=== PATIENT | female | born 1945 | race Caucasian/White ===

== ENCOUNTER → 2017-01-18 | Outpatient (CLI) | payer MEDICARE | END | disposition home or self-care (01) | LOC: CFH 13:04 | PROVIDERS: ATTEND Internal Medicine | DX: Z12.31 Encounter for screening mammogram for malignant neoplasm of breast (principal); R92.1 Mammographic calcification found on diagnostic imaging of breast | CPT/HCPCS: 77063; G0202 ==

== ENCOUNTER → 2017-11-01 | Outpatient (CLI) | payer MEDICARE | END | disposition home or self-care (01) | LOC: CFH 12:38 | PROVIDERS: ATTEND Internal Medicine | DX: Z13.820 Encounter for screening for osteoporosis (principal); E04.2 Nontoxic multinodular goiter; Z78.0 Asymptomatic menopausal state | CPT/HCPCS: 76536; 77080 ==

== ENCOUNTER → 2017-11-29 | Outpatient (CLI) | payer MEDICARE | END | disposition home or self-care (01) | LOC: CFH 08:38 | PROVIDERS: ATTEND Internal Medicine Geriatric Medicine | DX: D18.03 Hemangioma of intra-abdominal structures (principal); R16.0 Hepatomegaly, not elsewhere classified | CPT/HCPCS: 76700 ==

== ENCOUNTER → 2018-10-04 | Outpatient (CLI) | payer MEDICARE | END | disposition home or self-care (01) | LOC: CFH 13:01 | DX: R92.8 Other abnormal and inconclusive findings on diagnostic imaging of breast (principal) | CPT/HCPCS: 77065 ==

== ENCOUNTER 2018-10-06 11:51 | Outpatient (CLI) | payer MEDICARE ==
[2018-10-06] MEDS ORDERED: SODIUM BICARBONATE 4.0%, 5ML ONE (12:30)
[2018-10-06] MEDS ORDERED: LIDOCAINE 1%, 20ML ONE (12:30)
[2018-10-06] MEDS ORDERED: LIDOCAINE 1%-EPI 1:100K, 20ML ONE (12:30)
== END 2018-10-06 23:59 | disposition home or self-care (01) ==
LOC: CFH 11:51
DX: C50.911 Malignant neoplasm of unspecified site of right female breast (principal)
CPT/HCPCS: 19083; 77065; 88305; 88360; 88361; 88377; J3490; 19285

== ENCOUNTER → 2018-11-01 | Outpatient (CLI) | payer MEDICARE ==
[~2018-11-01] MED LIST: ACETAMINOPHEN 650 MG/20.3 ML UDC ONE; CALCIUM PO; CHOL10003 PO; CREA100P6 PO; LEVO50TA5 PO; MAGNESIUM PO; OXYcodone 5 MG/5 ML ORAL.SOL UDC ONE; TURM500C4 PO
== END | disposition home or self-care (01) ==
LOC: STAR 14:33
PROVIDERS: ATTEND Surgery
DX: Z01.818 Encounter for other preprocedural examination (principal); I45.10 Unspecified right bundle-branch block
CPT/HCPCS: 93005

== ENCOUNTER 2018-11-06 07:03 | Day surgery (SDC) | payer MEDICARE ==
[~2018-11-06] VITALS: Ht 167.6 cm; Wt 44.0 kg
[~2018-11-06 07:03] MED LIST changes: -ACETAMINOPHEN 650 MG/20.3 ML UDC ONE; +BUPIVACAINE/PF-EPI 0.5% 1:200K ONE; +ISOSULFAN BLUE 10 MG/ML, 5ML IV ONE; -OXYcodone 5 MG/5 ML ORAL.SOL UDC ONE
[2018-11-06] MEDS ORDERED: LACTATED RINGERS 1,000 ML IV SCH (07:57)
[2018-11-06 08:12] VITALS: BP 120/80
[2018-11-06] MEDS ORDERED: FENTANYL PF 100 MCG/2ML ONE (08:16)
[2018-11-06] MEDS ORDERED: MIDAZOLAM 1 MG/ML, 2ML ONE (08:16)
[2018-11-06] MEDS ORDERED: PROPOFOL 10 MG/ML, 20ML ONE (08:40)
[2018-11-06] MEDS ORDERED: DEXAMETHASONE 4 MG/ML, 1ML ONE ×2 (08:41→08:42)
[2018-11-06] MEDS ORDERED: ONDANSETRON 2MG/ML, 2ML ONE ×2 (08:42)
[2018-11-06] MEDS ORDERED: CEFAZOLIN 1,000 MG ONE (08:42)
[2018-11-06] MEDS ORDERED: ONDANSETRON 2MG/ML, 2ML IV PRN (09:00)
[2018-11-06] MEDS ORDERED: FENTANYL PF 100 MCG/2ML IV PRN (09:00)
[2018-11-06] MEDS ORDERED: MORPHINE SULFATE 4 MG/ML, 1ML IVPush PRN (09:00)
[2018-11-06] MEDS ORDERED: OXYcodone 5 MG/5 ML ORAL.SOL UDC PO PRN (09:00)
[2018-11-06] MEDS ORDERED: ONDANSETRON ODT 8 MG PO PRN (09:00)
[2018-11-06] MEDS ORDERED: MIDAZOLAM 1 MG/ML, 2ML IV PRN (09:00)
[2018-11-06] MEDS ORDERED: hydrALAzine 20 MG/ML, 1ML IV PRN (09:00)
[2018-11-06] MEDS ORDERED: DIAZEPAM 5 MG/ML, 2ML IVPush PRN (09:00)
[2018-11-06] MEDS ORDERED: PROMETHAZINE 12.5 MG SUPP PR PRN (09:00)
[2018-11-06] MEDS ORDERED: HYDROmorphone 2 MG/ML, 1ML IVPush PRN (09:00)
[2018-11-06] MEDS ORDERED: LABETALOL 5MG/ML, 20ML IV PRN (09:00)
[2018-11-06] MEDS ORDERED: HALOPERIDOL 5 MG/ML IV PRN (09:00)
[2018-11-06] MEDS ORDERED: MEPERIDINE/PF 25MG/0.5ML IVPush PRN (09:00)
[2018-11-06] MEDS ORDERED: ALBUTEROL SULFATE 2.5 MG/3 ML NPPB PRN (09:00)
[2018-11-06] MEDS ORDERED: EPHEDRINE 50 MG/ML, 1ML IVPush PRN (09:00)
[2018-11-06] MEDS ORDERED: PROMETHAZINE 25 MG/ML, 1ML IV PRN (09:00)
== END 2018-11-06 12:05 | disposition home or self-care (01) ==
LOC: OUT 07:03 → EDSTATUS 09:00 → OUT 12:05
PROVIDERS: ATTEND Surgery
DX: C50.911 Malignant neoplasm of unspecified site of right female breast (principal); R59.1 Generalized enlarged lymph nodes; Z98.890 Other specified postprocedural states; Z72.89 Other problems related to lifestyle
CPT/HCPCS: 19301; 38525; 38792; 88305; 88307; A9541; J0690; J1100; J2250; J2405; J2704; J3010; J7120

== ENCOUNTER 2018-11-30 07:24 | Outpatient (CLI) | payer MEDICARE ==
[~2018-11-30 07:24] MED LIST changes: -BUPIVACAINE/PF-EPI 0.5% 1:200K ONE; -ISOSULFAN BLUE 10 MG/ML, 5ML IV ONE
== END 2018-11-30 23:59 | disposition home or self-care (01) ==
LOC: ROC 07:24
PROVIDERS: ATTEND Radiology Radiation Oncology
DX: Z01.818 Encounter for other preprocedural examination (principal); C50.411 Malignant neoplasm of upper-outer quadrant of right female breast; E03.9 Hypothyroidism, unspecified; Z90.721 Acquired absence of ovaries, unilateral
CPT/HCPCS: G0463

== ENCOUNTER 2018-12-27 13:54 | Emergency (ER) | payer MEDICARE ==
[~2018-12-27] VITALS: Ht 167.6 cm; Wt 45.9 kg
--- NOTE | 2018-12-27 15:20 | NUR ---
PT POST BREAST CA SURG ADN ON CHEMO TX NO STOOL IN THE PAST TWO WEEKS FEELS DISTENDED
[2018-12-27] MEDS ORDERED: MORPHINE SULFATE 4 MG/ML, 1ML ONE (15:48)
[2018-12-27] MEDS ORDERED: ONDANSETRON 2MG/ML, 2ML ONE (15:48)
[2018-12-27] MEDS ORDERED: MORPHINE SULFATE 4 MG/ML, 1ML IVPush PRN (16:00)
[2018-12-27] MEDS ORDERED: ONDANSETRON 2MG/ML, 2ML IVPush ONE (16:00)
[2018-12-27 16:02] LABS: MEAN CORPUSCULAR HEMOGLOBIN 31.4 pg (27.0-34.8); MEAN CORPUSCULAR HGB CONC 33.1 g/dL (32.4-35.8); MEAN CORPUSCULAR VOLUME 94.8 fL (80-100); MEAN PLATELET VOLUME 9.3 fL (7.4-10.4); PLATELET COUNT 151 x10^3/uL (130-400); RED BLOOD COUNT 5.22 x10^6/uL (3.82-5.3); RED CELL DISTRIBUTION WIDTH 12.7 % (9.6-15.2)
[2018-12-27 16:11] LABS: ALANINE AMINOTRANSFERASE 45 U/L (12-78); ALBUMIN 4.2 g/dL (3.4-5.0); ANION GAP 9 mmol/L (5-15); CHLORIDE 101 mmol/L (98-107); CREATININE 0.88 mg/dL (0.55-1.02)
[2018-12-27 16:13] LABS: ALKALINE PHOSPHATASE 106 U/L (45-117); BILIRUBIN,TOTAL 0.8 mg/dL (0.2-1.0); TOTAL PROTEIN 7.4 g/dL (6.4-8.2)
[2018-12-27 16:19] LABS: MD YES
[2018-12-27 16:24] LABS: BAND#(MANUAL) 3.35 x10^3/uL; BANDS%(MANUAL) 25 % (0-7); LYMPH#(MANUAL) 2.55 x10^3/uL (1-3.4); LYMPHS% (MANUAL) 19 % (22-44); METAMYELOCYTES# (MANUAL) 0.27 x10^3/uL (0-0); METAMYELOCYTES% (MANUAL) 2 % (0-1); MONOS#(MANUAL) 1.74 x10^3/uL (0.3-2.7); MONOS% (MANUAL) 13 % (2-9); SEG#(MANUAL) 5.36 x10^3/uL (1.8-6.8); SEGS% (MANUAL) 40 % (42-75)
[2018-12-27 16:25] LABS: OTHER CELLS # (MANUAL) 0.13 x10^3/uL (0-0); OTHER CELLS % (MANUAL) 1 % (0-0)
[2018-12-27 16:26] LABS: <PLATELET ESTIMATE> ADEQUATE; ANISOCYTOSIS 1+; PMNS WITH VACUOLES 1+; TOXIC GRAN 1+
[2018-12-27 16:30] LABS: <PLT MORPHOLOGY> NORMAL PLT MORPH
--- NOTE | 2018-12-27 16:33 | NUR ---
ICE CHIPS GIVEN ERP AWARE
--- NOTE | 2018-12-27 17:00 | NUR ---
BEDSIDE REPORT AND CARE FROM BROOKLYN DAVIS. PT RESTING IN POSITION OF COMFORT. RATES PAIN 0/10. DENIES NEED TO USE RESTROOM, AWARE UA SAMPLE IS NEEDED. AWAITING RECHECK. SPOUSE AT BEDSIDE. VSS.
[2018-12-27] MEDS ORDERED: OMNIPAQUE 350 MG/ML, 100ML BOTTLE ONE (17:01)
[2018-12-27] MEDS ORDERED: POLYETHYLENE GLYCOL 17 GM PACKET NG ONE (17:30)
[2018-12-27] MEDS ORDERED: PINK LADY ENEMA 490 ML BOTTLE PR ONE (17:30)
--- NOTE | 2018-12-27 17:50 | NUR ---
PT AMBULATED TO RESTROOM WITH STEADY GAIT. CLEAN CATCH UA COLLECTED AND SENT TO LAB. PT RESTING IN POSITION OF COMFORT. DENIES ANY PAIN "PAIN IS ALL GONE." SPOUSE AT BEDSIDE. CALL LIGHT IN REACH.
--- NOTE | 2018-12-27 17:51 | NUR ---
[facility] ENEMA REQUESTED FROM PHARMACY
--- NOTE | 2018-12-27 17:57 | NUR ---
BEDSIDE REPORT AND CARE TO MANNY DAVSI AT THIS TIME.
[2018-12-27 18:17] LABS: MICROSCOPIC NOT IND
[2018-12-27 18:30] LABS: CULTURE INDICATED? NO
--- NOTE | 2018-12-27 20:00 | NUR ---
AFTER MEDICATION PATIENT WITH LARGE BM-REPORTS RELIEF PROVIDER MADE AWARE PROVIDED WITH CRACKER/JUICE/WATER
--- NOTE | 2018-12-27 21:00 | NUR ---
WITH ROAD TEST PATIENT REPORTING "I FEEL FAINT WHEN I GET UP" VITALS WNL 70, 130/65 PROVIDER MADE AWARE TO PROVIDER FURTHER NOURISHMENT AND RE-ASSESS
--- NOTE | 2018-12-27 22:15 | NUR ---
WITH MORE NOURISHMENT-PATIENT WALKING W/OUT DIFFICULTY (NO LONGER FAINT) DISCHARGED IN THE COMPANY OF HER ADVISED TO MAINTAIN HYDRATION/WATCH NARCOTIC ADMINISTRATION WHILE NOT EATING/DRINKING AT HER NORMAL
[2018-12-27 22:30] VITALS: BP 129/74
== END 2018-12-27 22:33 | disposition home or self-care (01) ==
LOC: ED 17:13
DX: M54.5 Low back pain (principal); K59.00 Constipation, unspecified; E03.9 Hypothyroidism, unspecified; Z90.710 Acquired absence of both cervix and uterus; Z90.89 Acquired absence of other organs; Z85.3 Personal history of malignant neoplasm of breast
CPT/HCPCS: 36415; 74177; 80053; 81003; 83690; 85025; 93005; 96374; 96375; 99284; J2270; J2405; Q9967

== ENCOUNTER 2019-01-17 20:47 | Emergency (ER) | payer MEDICARE ==
[~2019-01-17] VITALS: Ht 167.6 cm; Wt 46.2 kg
--- NOTE | 2019-01-17 21:18 | NUR ---
PT PRESENTING TO ER FOR CONSTIPATION, NO BM X7 DAYS. PT CURRENTLY ON CHEMO TREATMENTS, STATES THIS IS A SIDE EFFECT AND HASNT HAD A BM SINCE LAST TREATMENT. REVERSE ISO PRECAUTIONS IN PLACE. CONNECTED TO MONITORING, VSS. AT BEDSIDE. MD ASSESSMENT COMPLETE, AWAITING ORDERS AT THIS TIME. CALL LIGHT WITHIN REACH.
--- NOTE | 2019-01-17 21:29 | NUR ---
RAD AT BEDSIDE
--- NOTE | 2019-01-17 21:33 | NUR ---
REQUESTED URINE SAMPLE FROM PT, PT REPORTING JUST WENT AND CANNOT CURRENTLY PROVIDE. WILL CONTINUE TO CHECK BACK
--- NOTE | 2019-01-17 21:45 | NUR ---
LABS COLLECTED, TECH AT BEDSIDE FOR EKG
[2019-01-17 22:02] LABS: MEAN CORPUSCULAR HEMOGLOBIN 30.8 pg (27.0-34.8); MEAN CORPUSCULAR HGB CONC 32.5 g/dL (32.4-35.8); MEAN CORPUSCULAR VOLUME 94.8 fL (80-100); MEAN PLATELET VOLUME 8.1 fL (7.4-10.4); PLATELET COUNT 152 x10^3/uL (130-400); RED BLOOD COUNT 3.79 x10^6/uL (3.82-5.3); RED CELL DISTRIBUTION WIDTH 13.5 % (9.6-15.2)
[2019-01-17 22:13] LABS: ALANINE AMINOTRANSFERASE 34 U/L (12-78); ALBUMIN 3.2 g/dL (3.4-5.0); ANION GAP 6 mmol/L (5-15); CALCIUM 8.8 mg/dL (8.5-10.1); CHLORIDE 105 mmol/L (98-107); CREATININE 0.59 mg/dL (0.55-1.02)
--- NOTE | 2019-01-17 22:13 | NUR ---
PT UP TO RESTROOM AT THIS TIME TO ATTEMPT URINE SAMPLE
[2019-01-17 22:15] LABS: ALKALINE PHOSPHATASE 82 U/L (45-117); BILIRUBIN,TOTAL 0.6 mg/dL (0.2-1.0); TOTAL PROTEIN 5.8 g/dL (6.4-8.2)
[2019-01-17 22:22] LABS: MD YES
--- NOTE | 2019-01-17 22:23 | NUR ---
TO BEDSIDE TO UPDATE PT AND ON POC. UA COLLECTED AND SENT TO LAB. REPORT GIVEN TO MANNY DAVIS
[2019-01-17 22:29] LABS: MICROSCOPIC NOT IND
[2019-01-17] MEDS ORDERED: PINK LADY ENEMA 490 ML BOTTLE PR ONE (22:30)
[2019-01-17 22:36] LABS: CULTURE INDICATED? NO
[2019-01-17 22:37] LABS: BAND#(MANUAL) 0.79 x10^3/uL; BANDS%(MANUAL) 7 % (0-7); EOS#(MANUAL) 0.11 x10^3/uL (0.0-0.4); EOS% (MANUAL) 1 % (1-7); LYMPH#(MANUAL) 1.92 x10^3/uL (1-3.4); LYMPHS% (MANUAL) 17 % (22-44); METAMYELOCYTES% (MANUAL) 8 % (0-1); MONOS% (MANUAL) 8 % (2-9); MYELOCYTES# (MANUAL) 0.23 x10^3/uL (0-0); MYELOCYTES% (MANUAL) 2 % (0-0); PROGRANULOCYTES# (MANUAL) 0.45 x10^3/uL (0-0); PROGRANULOCYTES% (MANUAL) 4 % (0-0); REACTIVE LYMPHS # (MANUAL) 0.11 x10^3/uL (0-0); REACTIVE LYMPHS % (MANUAL) 1 % (0-0); SEG#(MANUAL) 5.88 x10^3/uL (1.8-6.8); SEGS% (MANUAL) 52 % (42-75)
[2019-01-17 22:42] LABS: <RBC MORPHOLOGY> NORMAL
[2019-01-17 22:43] LABS: <PLATELET ESTIMATE> ADEQUATE; <PLT MORPHOLOGY> NORMAL PLT MORPH; TOXIC GRAN 2+
--- NOTE | 2019-01-17 22:47 | NUR ---
CALLED LAB TO INQUIRE ENEMA WHERABOUTS (ESTIMATED TO BE READY IN 15 MINUTES)
--- NOTE | 2019-01-17 23:00 | NUR ---
provided with po fluids/solids-tolerating vitals updated-wnl
--- NOTE | 2019-01-17 23:30 | NUR ---
tolerated enema with minimal difficulty
--- NOTE | 2019-01-17 23:56 | NUR ---
patient has had 4 large watery stools. Patient reports "I feel much better." Taking po fluids/solids Once returns-to d/c
[2019-01-17 23:57] VITALS: BP 106/71
--- NOTE | 2019-01-18 00:05 | NUR ---
Extensive pericare performed with cleanser and barrier cream Mesh underwear w/ silvina-pad supplied and patient dressed. brought back to room from lobby-Patient discharged in his company
== END 2019-01-18 00:23 | disposition home or self-care (01) ==
LOC: ED 23:56
DX: K59.00 Constipation, unspecified (principal); C50.919 Malignant neoplasm of unspecified site of unspecified female breast; Z51.11 Encounter for antineoplastic chemotherapy; E03.9 Hypothyroidism, unspecified; Z90.49 Acquired absence of other specified parts of digestive tract
CPT/HCPCS: 36415; 74021; 80053; 81003; 83690; 85025; 93005; 99284

== ENCOUNTER 2019-07-10 12:01 | Outpatient (CLI) | payer MEDICARE | END 2019-07-10 23:59 | disposition home or self-care (01) | LOC: CFH 12:01 | PROVIDERS: ATTEND Radiology Radiation Oncology | DX: C50.911 Malignant neoplasm of unspecified site of right female breast (principal); Z98.890 Other specified postprocedural states; Z92.21 Personal history of antineoplastic chemotherapy; Z92.3 Personal history of irradiation; Z96.89 Presence of other specified functional implants | CPT/HCPCS: 77065; G0279 ==

== ENCOUNTER 2019-08-16 09:18 | Outpatient (CLI) | payer MEDICARE | END 2019-08-16 23:59 | disposition home or self-care (01) | LOC: ROC 09:18 | PROVIDERS: ATTEND Radiology Radiation Oncology | DX: C50.411 Malignant neoplasm of upper-outer quadrant of right female breast (principal); Z79.899 Other long term (current) drug therapy | CPT/HCPCS: G0463 ==